=== PATIENT | male | born 1970 | race Caucasian/White ===

== ENCOUNTER 2022-01-12 12:05 | Emergency (ER) | payer BC, SELFPAY ==
--- NOTE | ~2022-01-12 | CT_ITS ---
EXAMINATION: CT abdomen pelvis wo con DATE: 01/12/2022 13:39 INDICATION: Left upper quadrant abdominal pain, nausea, difficulty urinating. History of kidney stone s. TECHNIQUE: Computed tomography (CT) of the abdomen and pelvis was performed without intravenous contr ast. Automated exposure control and iterative reconstruction technique were employed. Exam dose: 151 7.93 mGy-cm total exam DLP. COMPARISON: None. FINDINGS: The lung bases are clear. Normal heart size. No pericardial or pleural effusion. Hepatic steatosis. No hepatic space-occupying mass lesion is detected. Possible very small stone in the dependent aspect of the gallbladder. Ultrasound would be more more d efinitive for detection of cholelithiasis. No bile duct or pancreatic duct dilatation. No pancreatic mass lesion or calcification. Normal splenic size. Normal morphology of the adrenal glands. No renal mass lesion is noted. There is an approximately 5 mm obstructing proximal left ureteral calc ulus with moderate left hydronephrosis and left perinephric stranding. No other urinary tract calculu s is noted. The urinary bladder and prostate gland are unremarkable. Diverticulosis of the sigmoid and descending colon, splenic flexure, transverse colon, hepatic flexur e. No evidence of diverticulitis. Normal appendix. No bowel obstruction. Normal caliber and minimal atherosclerotic calcification of the abdominal aorta. No intraperitoneal o r retroperitoneal or pelvic mass lesion or adenopathy or ascites. No suspicious osteolytic or osteoblastic lesions are noted. There are some degenerative changes of th e thoracic and lumbar spine. IMPRESSION: 5 mm obstructing proximal left ureteral calculus with moderate left hydronephrosis and p erinephric stranding Diverticulosis of left and right colon; no evidence of diverticulitis Normal appendix Hepatic steatosis Cannot exclude a very small stone in the gallbladder Reviewed, dictated and finalized at [facility]. Reviewed, dictated and finalized at [facility]. IMPRESSION: 5 mm obstructing proximal left ureteral calculus with moderate lef t hydronephrosis and perinephric stranding Diverticulosis of left and right colon; no evidence of diverticulitis Normal appendix Hepatic steatosis Cannot exclude a very small stone in the gallbladder
[2022-01-12 12:07] VITALS: BP 161/99; PULSE 76; RESP 16; TEMP 36.8; O2SAT 100
[2022-01-12 12:39] LABS: Basophils Absolute Auto 0.1 K/mm3 (0.0-0.1); Basophils Percent Auto 0.5 % (0.2-1.2); Eosinophils Absolute Auto 0.2 K/mm3 (0-0.3); Eosinophils Percent Auto 1.3 % (0-4.4); Hematocrit 47.8 % (42.0-52.0); Immature Granulocyte Absolute 0.12 K/mm3 (0.00-0.031); Immature Granulocyte Percent A 0.9 % (0-0.5); Lymphocytes Percent Auto 14.8 % (18.3-44.2); Mean Corpuscular HGB Conc 33.5 g/dl (32-36); Mean Corpuscular Hemoglobin 32.7 pg (26-34); Mean Corpuscular Volume 97.6 fl (80-100); Mean Platelet Volume 9.9 fl (7.4-10.4); Monocytes Percent Auto 7.3 % (2.6-8.5); Neutrophils Absolute Auto 10.2 K/mm3 (1.3-6.7); Neutrophils Percent Auto 75.2 % (45.5-73.1); Platelet Count Result 286 k/mm3 (150-375); Red Cell Distribution Width 12.1 % (11.5-14.5); White Blood Count 13.5 K/mm3 (4.5-10.0)
[2022-01-12] MEDS: ONDANSETRON INJ 4 MG/2 ML VIAL IV PUSH (12:45)
[2022-01-12] MEDS: MORPHINE SULFATE (*CRX) 4 MG/ML INJ IV PUSH (12:47)
[2022-01-12] MEDS: SODIUM CHLORIDE 0.9% IV 1,000 ML 999 ML IV CONT (12:49)
[2022-01-12 12:50] LABS: Alanine Aminotransferase 42 U/L (6-50); Albumin Level 4.8 g/dL (3.5-5.1); Alkaline Phosphatase 77 U/L (38-126); Anion Gap 6 mmol/L (8-16); Aspartate Amino Transferase 40 U/L (17-59); Bilirubin,Total 0.9 mg/dL (0.2-1.3); Blood Urea Nitrogen 14 mg/dL (9-20); Calcium 9.3 mg/dL (8.4-10.2); Carbon Dioxide 27 mmol/L (22-30); Chloride 104 mmol/L (98-107); Estimated CRCL calculation 79 ml/min; Estimated Glomerular Filt Rate > 60; Glucose 114 mg/dL (65-110); Lipase 132 U/L (23-300); Potassium 4.2 mmol/L (3.4-5.0); Sodium 137 mmol/L (137-145)
[2022-01-12 13:13] VITALS: BP 152/80; PULSE 84; RESP 16; TEMP 36.4; O2SAT 98
[2022-01-12 13:40] LABS: Appearance Urine Clear (Clear); Bilirubin Urine Negative (Negative); Blood Urine 2+ (Negative); Color Urine Yellow (Yellow); Glucose Urine UA Negative (Negative); Ketones Urine 1+ mg/dL (Negative); Leukocyte Esterase Ur Negative LEU/UL (Negative); Nitrate Urine Negative (Negative); Protein Urine Negative (Negative); Specific Grav Ur 1.025 (1.001-1.035); Urobilinogen Urine 0.2 mg/dL (<2.0)
[2022-01-12 13:44] LABS: Mucus Urine Rare /lpf; RBC Urine 21-50 /hpf (0-2); Squamous Epithelial Cell Urine Rare /hpf (Few); WBC Urine 0-3 /hpf
[2022-01-12 13:45] LABS: Add Urine Microscopic? YES
[2022-01-12 14:00] VITALS: BP 154/88; PULSE 80; RESP 16; TEMP 36.3; O2SAT 98
[2022-01-12] MEDS: KETOROLAC 30 MG/ML VIAL (*BKC) IV PUSH (14:31)
--- NOTE | 2022-01-12 14:37 | ED.GENADULT ---
HPI - General Adult General Chief complaint: Abdominal Pain Stated complaint: llq PAIN Time Seen by Provider: 01/12/22 12:13 History of Present Illness HPI narrative: Patient is a 51-year-old male who presents ER with left-sided abdominal pain and flank pain. Sudden onset 1/2 hours prior to arrival. No fevers chills or sweats. Mild nausea. Has not had similar pain in the past. No diarrhea. No urinary frequency urgency or dysuria. No hematuria. Related Data Allergies Allergy/AdvReac Type Severity Reaction Status Date / Time No Known Allergies Allergy Verified 01/12/22 12:06 Review of Systems Review of Systems: All systems reviewed & are unremarkable except as noted in HPI and below Constitutional: Constitutional: Denies chills and Denies fever(s) ENT: Denies nasal congestion and Denies sore throat Gastrointestinal: Gastrointestinal: Reports abdominal pain, Denies constipation, Denies diarrhea, Reports nausea and Denies vomiting Genitourinary: Genitourinary: Denies hematuria, Denies dysuria and Denies urinary frequency PMFSH Past Medical History Medical History (Updated 01/12/22 @ 15:08 by Marcial Collazo MD) Healthy adult male Surgical History Surgical History (Updated 01/12/22 @ 14:39 by Marcial Collazo MD) No history of previous surgery Exam Narrative: GENERAL: Uncomfortable-appearing, well-nourished, and in no acute distress. HEAD: Normocephalic, atraumatic. ENT: Mucous membranes moist. CHEST: Clear to auscultation. No respiratory distress. HEART: Regular rate and rhythm. Normal peripheral pulses. ABDOMEN: Soft, discomfort in left mid and lower abdomen without rebound or guarding, nondistended. EXTREMITIES: Normal range of motion. No edema. SKIN: Warm, dry, no rash. NEURO: Alert and oriented x3. PSYCH: Normal mood and affect. Course Course Emergency Course: Minimal improvement with morphine but much better with Toradol. Informed of results and discharge plan. Patient verbalized understanding. Vital Signs Vital signs: Vital Signs Temperature 98.3 F 01/12/22 12:07 Pulse Rate 76 01/12/22 12:07 Respiratory Rate 16 01/12/22 12:07 Blood Pressure 161/99 H 01/12/22 12:07 Pulse Oximetry 100 01/12/22 12:07 Oxygen Delivery Room Air 01/12/22 12:07 Temperature 97.6 F 01/12/22 13:13 Pulse Rate 84 01/12/22 13:13 Respiratory Rate 16 01/12/22 13:13 Blood Pressure 152/80 H 01/12/22 13:13 Pulse Oximetry 98 01/12/22 13:13 Oxygen Delivery Room Air 01/12/22 12:07 Medical Decision Making Vital Signs Vital Signs: Vital Signs Temperature 98.3 F 01/12/22 12:07 Pulse Rate 76 01/12/22 12:07 Respiratory Rate 16 01/12/22 12:07 Blood Pressure 161/99 H 01/12/22 12:07 Pulse Oximetry 100 01/12/22 12:07 Oxygen Delivery Room Air 01/12/22 12:07 Temperature 97.6 F 01/12/22 13:13 Pulse Rate 84 01/12/22 13:13 Respiratory Rate 16 01/12/22 13:13 Blood Pressure 152/80 H 01/12/22 13:13 Pulse Oximetry 98 01/12/22 13:13 Oxygen Delivery Room Air 01/12/22 12:07 Lab Data Result diagrams: 01/12/22 12:20 01/12/22 12:20 Labs: Lab Results 01/12/22 01/12/22 01/12/22 Range/Units 12:20 12:20 13:29 WBC 13.5 H (4.5-10.0) K/mm3 RBC 4.90 (4.6-6.20) M/mm3 Hgb 16.0 (14.0-18.0) g/dL Hct 47.8 (42.0-52.0) % MCV 97.6 (80-100) fl MCH 32.7 (26-34) pg MCHC 33.5 (32-36) g/dl RDW 12.1 (11.5-14.5) % Plt Count 286 (150-375) k/mm3 MPV 9.9 (7.4-10.4) fl Immature Gran % (Auto) 0.9 H (0-0.5) % Neut % (Auto) 75.2 H (45.5-73.1) % Lymph % (Auto) 14.8 L (18.3-44.2) % Mckenzie % (Auto) 7.3 (2.6-8.5) % Eos % (Auto) 1.3 (0-4.4) % Baso % (Auto) 0.5 (0.2-1.2) % Lymph # (Auto) 2.00 (0.9-3.2) K/mm3 Mckenzie # (Auto) 1.0 H (0.1-0.6) K/mm3 Eos # (Auto) 0.2 (0-0.3) K/mm3 Baso # (Auto) 0.1 (0.0-0.1) K/mm3 Abs Immat Gran (auto) 0.1
[2022-01-12 15:00] VITALS: BP 140/78; PULSE 82; RESP 16; TEMP 36.6; O2SAT 98
== END 2022-01-12 15:15 | disposition home or self-care (01) ==
PROVIDERS: Emergency Medicine; Emergency Provider Emergency Medicine; PCP Family Medicine
DX: N13.2 Hydronephrosis with renal and ureteral calculous obstruction (principal); K57.90 Diverticulosis of intestine, part unspecified, without perforation or abscess without bleeding; K76.0 Fatty (change of) liver, not elsewhere classified
CPT/HCPCS: 36415; 74176; 80053; 81001; 83690; 85025; 96361; 96374; 96375; 99284; J1885; J2270; J2405; J7030

== ENCOUNTER 2022-01-14 14:34 | Outpatient (CLI) | payer BC, SELFPAY ==
--- NOTE | ~2022-01-14 | XR_ITS ---
EXAMINATION: XR abdomen/kub 1V DATE: 01/14/2022 15:04 INDICATION: Kidney stone. TECHNIQUE: A supine view of the abdomen on 2 radiographs was obtained. COMPARISON: CT abdomen and pelvis 01/12/2022 FINDINGS: There are no dilated loops of bowel. There is a 5 mm stone in proximal left ureter at L3-L4 . IMPRESSION: 1. 5 mm stone in proximal left ureter. Reviewed, dictated and finalized at [facility].
== END 2022-01-14 14:35 | disposition home or self-care (01) ==
LOC: ANHIMG 14:50
PROVIDERS: PCP Family Medicine; Visit Provider Urology
DX: N20.0 Calculus of kidney (principal); N20.1 Calculus of ureter
CPT/HCPCS: 74018

== ENCOUNTER 2022-01-19 07:08 | Outpatient (CLI) | payer BC, SELFPAY ==
--- NOTE | ~2022-01-19 | XR_ITS ---
EXAM: XR abdomen/kub 1V DATE: 01/19/2022 07:26 HISTORY: LEFT UTETERAL STONE . COMPARISON: 01/14/2022. FINDINGS: Clear lung bases. Normal bowel gas pattern. No organomegaly. Previously described left-sofy ed 5 mm stone no longer visualized. Pelvic phleboliths. Regional bones and soft tissues normal for ag e. IMPRESSION: Previously described left ureteral stone not visualized, and may have passed. Reviewed, dictated and finalized at [facility]. IMPRESSION: Previously described left ureteral stone not visualized, and may guzman ve passed.
== END 2022-01-19 07:09 | disposition home or self-care (01) ==
PROVIDERS: PCP Family Medicine; Visit Provider Family Medicine
DX: N20.1 Calculus of ureter (principal)
CPT/HCPCS: 74018

== ENCOUNTER 2023-10-10 00:04 | Day surgery (SDC) | payer BC, SELFPAY ==
[2023-10-01 10:40] VITALS: BMI 36.9
--- NOTE | 2023-10-08 08:57 | SUR.PREOP ---
Patient called regarding upcoming procedure. Reviewed preop instructions, appointment times, and procedure prep.
[2023-10-10 09:20] VITALS: BP 133/91; PULSE 96; RESP 18; TEMP 36.1; O2SAT 97; BMI 37.7
[2023-10-10] MEDS: LACTATED RINGERS 1,000 ML 150 ML IV CONT (09:42)
--- NOTE | 2023-10-10 10:06 | WPDANESEPPF ---
Anes - Initial Pre Proc Eval Procedure: Operation Date: 10/10/23 10:30 Proposed Procedures p Screening Colonoscopy - Sukumar Winston MD Date/Time: 10/10/23 10:06 Surgeon: Sukumar Winston MD Pre Op Diagnosis: neoplasm screening Patient Data Age: 53 Gender: M Height: 1.75 m Weight: 115.8 kg Last Vital Signs Temp 96.9 F L 10/10/23 09:20 Pulse 96 10/10/23 09:20 Resp 18 10/10/23 09:20 BP 133/91 H 10/10/23 09:20 Pulse Ox 97 10/10/23 09:20 O2 Del Method Room Air 10/10/23 09:20 Allergies Allergy/AdvReac Type Severity Reaction Status Date / Time No Known Allergies Allergy Verified 10/10/23 09:28 Home Medications Medication Instructions Recorded Confirmed Type aspirin 81 mg tablet,delayed 81 mg PO DAILY #30 tabs 06/02/23 10/10/23 Rx release sildenafil 100 mg tablet 100 mg PO DAILY PRN sexual 06/03/23 10/10/23 Rx activity #30 tabs Patient hx anesthesia problems: none Family hx anesthesia problems: none Results Review: All pre-operative results and documents have been reviewed as part of the pre-operative evaluation. [facility] Past Medical History Medical History (Updated 06/02/23 @ 12:16 by EVELYNE Talbert) History of kidney stones Surgical History Surgical History (Updated 06/02/23 @ 12:16 by EVELYNE aTlbert) History of lithotripsy Family History Family History (Updated 06/02/23 @ 12:17 by EVELYNE Talbert) Father Malignant neoplasm of prostate Mother Cancer Grandparent Stomach cancer Social History Social History (Updated 06/02/23 @ 10:20 by Tigist Mitchell MA) Smoking packs per day: 1 Smoking cigarettes per day: 20.0 Years smoked: 20 Smoking pack-years: 20.00 Smoking status: Former smoker Tobacco type: cigarettes Smokeless tobacco user: chewing tobacco Additional smoking assessment comments: CHEWS CURRENTLY Alcohol intake: current Drinks per week: 12 Alcohol use details: BEERS ON SOME WEEKENDS Substance use: never Substance use type: does not use Lack of Transportation: No Lack of Food: Never True Current Housing: I Have Housing Concerned About Future Housing: No Difficulty Paying Gas/Electric Bills: No Difficulty Paying for Meds: No Currently Unemployed: No Education: High School Diploma/GED Living arrangements: with family Occupation/Education: occupation Gender identity (if verbalized by the patient): Male Sexual Orientation (if Verbalized by the Patient): Straight or Heterosexual Spiritual care concerns: No Anes - Eval Final PreProcedure Day of Procedure 10/10/23 10:06 Patient weight: obese Heart: regular rate and rhythm Lungs: clear to auscultation Airway: Mallampati scale class II Neurological: alert and oriented Last oral intake: >/= 8 hours ASA classification: III Emergent: no Anesthetic plan: proceed Anesthesia type and monitoring: general GIVS and standard monitoring Results Review: All pre-operative results and documents have been reviewed as part of the pre-operative evaluation. Informed Consent: The patient's anesthetic plan and its attendant risks and benefits were discussed with the patient/family/POA. Questions were solicited and answers provided to the satisfaction of the patient/family/POA.
--- NOTE | 2023-10-10 10:36 | PM.HPGS ---
History of Present Illness History of Present Illness Consent: Risks, benefits, and alternatives have been discussed and questions answered. Patient agrees to proceed with procedure. Chief complaint: neoplasm screening Narrative: Anuradha Yao Sr. is a 53 year old male here for first screening colonoscopy Review of Systems Review of Systems: All systems reviewed & are unremarkable except as noted in HPI and below PMFSH Past Medical History Medical History (Updated 10/10/23 @ 10:36 by Sukumar Winston MD) Colon cancer screening History of kidney stones Surgical History Surgical History (Updated 06/02/23 @ 12:16 by EVELYNE Talbetr) History of lithotripsy Family History Family History (Updated 06/02/23 @ 12:17 by EVELYNE Talbert) Father Malignant neoplasm of prostate Mother Cancer Grandparent Stomach cancer Social History Social History (Updated 06/02/23 @ 10:20 by Tigist Mitchell MA) Smoking packs per day: 1 Smoking cigarettes per day: 20.0 Years smoked: 20 Smoking pack-years: 20.00 Smoking status: Former smoker Tobacco type: cigarettes Smokeless tobacco user: chewing tobacco Additional smoking assessment comments: CHEWS CURRENTLY Alcohol intake: current Drinks per week: 12 Alcohol use details: BEERS ON SOME WEEKENDS Substance use: never Substance use type: does not use Lack of Transportation: No Lack of Food: Never True Current Housing: I Have Housing Concerned About Future Housing: No Difficulty Paying Gas/Electric Bills: No Difficulty Paying for Meds: No Currently Unemployed: No Education: High School Diploma/GED Living arrangements: with family Occupation/Education: occupation Gender identity (if verbalized by the patient): Male Sexual Orientation (if Verbalized by the Patient): Straight or Heterosexual Spiritual care concerns: No Meds Home Medications and Allergies Home Medications Medication Instructions Recorded Confirmed Type aspirin 81 mg tablet,delayed 81 mg PO DAILY #30 tabs 06/02/23 10/10/23 Rx release sildenafil 100 mg tablet 100 mg PO DAILY PRN sexual 06/03/23 10/10/23 Rx activity #30 tabs Allergies Allergy/AdvReac Type Severity Reaction Status Date / Time No Known Allergies Allergy Verified 10/10/23 09:28 Vital Signs Vital Signs - 24 hr 10/10/23 09:20 Temperature 96.9 F L Pulse Rate 96 Respiratory Rate 18 Blood Pressure 133/91 H Pulse Oximetry 97 Oxygen Delivery Room Air Exam Const: General: comfortable and no acute distress HENMT: Face/Nose/Sinus: Normal nares present Eyes: General: appearance normal, both eyes and all related structures Neck: Neck: no JVD Resp: Auscultation: clear to auscultation bilaterally Cardio: Rate: regular rate Rhythm: regular rhythm GI: Inspection: non-distended GI Palp: Yes Soft to palpation Skin: General skin exam: normal color Neuro: General: gait normal Speech: normal speech Extrem: General: normal to inspection Psych: Mental Status: mental status grossly normal Assessment and Plan Assessment and plan (1) Colon cancer screening: Code(s): Z12.11 - Encounter for screening for malignant neoplasm of colon Status: Acute Assessment and Plan: colonoscopy
[2023-10-10 11:04] VITALS: BP 110/83; PULSE 84; RESP 22; O2SAT 97
[2023-10-10 11:14] VITALS: BP 112/74; PULSE 88; RESP 17; O2SAT 96
[2023-10-10 11:24] VITALS: BP 140/97; PULSE 71; RESP 19; O2SAT 100
== END 2023-10-10 11:29 | disposition home or self-care (01) ==
PROVIDERS: PCP Family Medicine; Visit Provider Internal Medicine Gastroenterology
PROC: 0DJD8ZZ Inspection of Lower Intestinal Tract, Via Natural or Artificial Opening Endoscopic (ICD-10-PCS; CPT 45378; principal; 2023-10-10 10:30)
DX: Z12.11 Encounter for screening for malignant neoplasm of colon (principal); D12.3 Benign neoplasm of transverse colon; K57.30 Diverticulosis of large intestine without perforation or abscess without bleeding; K64.8 Other hemorrhoids; F17.220 Nicotine dependence, chewing tobacco, uncomplicated; E66.9 Obesity, unspecified; Z68.37 Body mass index [BMI] 37.0-37.9, adult; Z79.82 Long term (current) use of aspirin
CPT/HCPCS: 45385; 88305; J2704; J7120